=== PATIENT | male | born 1945 | race Caucasian/White ===

== ENCOUNTER → 2017-03-11 | Outpatient (CLI) | payer OTHER | LOC: M.LAB 13:04 | DX: N40.1 Benign prostatic hyperplasia with lower urinary tract symptoms (principal) ==

== ENCOUNTER → 2017-08-12 | Outpatient (CLI) | payer OTHER | LOC: M.LAB 13:55 | DX: R97.20 Elevated prostate specific antigen [PSA] (principal) ==

== ENCOUNTER → 2018-05-30 | Outpatient (CLI) | payer OTHER | LOC: M.RAD 16:59 | DX: J15.8 Pneumonia due to other specified bacteria (principal) ==

== ENCOUNTER → 2018-06-17 | Outpatient (CLI) | payer OTHER | LOC: M.RAD 11:11 | DX: J15.8 Pneumonia due to other specified bacteria (principal); I11.9 Hypertensive heart disease without heart failure ==

== ENCOUNTER → 2019-02-28 | Outpatient (CLI) | payer MEDICARE | LOC: M.MRI 11:20 | DX: M47.26 Other spondylosis with radiculopathy, lumbar region (principal); M43.16 Spondylolisthesis, lumbar region; M62.81 Muscle weakness (generalized); M51.16 Intervertebral disc disorders with radiculopathy, lumbar region ==

== ENCOUNTER → 2019-03-13 | Outpatient (CLI) | payer MEDICARE ==
[~2019-03-13] MED LIST: ASPIR 8181 M1 PO; COZAAR 25 MG TA25 M1 PO; FISH OIL 1,0001 EAC9 PO; FLOMAX0.4 MG PO; NORVASC5 M1 PO; PREDNISONE 10 M10 MG PO; PROAIR HFA8.5 GM INH; PROPAFENONE 15150 MG PO; PROSTATE HEALT1 EAC1 PO; VITAMIN B12-FO1 EAC1 PO; VITAMIN E400 UNIT PO; XARELTO20 MG PO; ZANAFLEX4 MG PO
== END ==
LOC: M.PC 02:24
DX: M51.16 Intervertebral disc disorders with radiculopathy, lumbar region (principal); M47.26 Other spondylosis with radiculopathy, lumbar region; M48.061 Spinal stenosis, lumbar region without neurogenic claudication

== ENCOUNTER → 2019-03-29 | Outpatient (CLI) | payer MEDICARE | LOC: M.RAD 12:22 | DX: M51.36 Other intervertebral disc degeneration, lumbar region (principal); M43.16 Spondylolisthesis, lumbar region; M12.88 Other specific arthropathies, not elsewhere classified, other specified site ==

== ENCOUNTER → 2019-04-21 | Outpatient (CLI) | payer MEDICARE | LOC: M.RAD 12:21 | DX: M25.572 Pain in left ankle and joints of left foot (principal); G89.29 Other chronic pain ==

== ENCOUNTER → 2021-02-11 | Outpatient (CLI) | payer MEDICARE ==
[~2021-02-11] MED LIST changes: +ELIQUIS5 MG PO
== END ==
LOC: M.MRI 01-28 14:30
PROVIDERS: ATTEND Internal Medicine
DX: M48.07 Spinal stenosis, lumbosacral region (principal); M54.41 Lumbago with sciatica, right side; M51.37 Other intervertebral disc degeneration, lumbosacral region; M47.817 Spondylosis without myelopathy or radiculopathy, lumbosacral region; M43.16 Spondylolisthesis, lumbar region

== ENCOUNTER → 2021-02-12 | Outpatient (CLI) | payer MEDICARE | LOC: M.PC 01-27 09:30 | PROVIDERS: ATTEND Physical Medicine & Rehabilitation | DX: M47.26 Other spondylosis with radiculopathy, lumbar region (principal); M51.16 Intervertebral disc disorders with radiculopathy, lumbar region; M48.061 Spinal stenosis, lumbar region without neurogenic claudication; M96.1 Postlaminectomy syndrome, not elsewhere classified; M79.604 Pain in right leg; I10 Essential (primary) hypertension ==